=== PATIENT | female | born 1940 | race Caucasian/White ===

== ENCOUNTER 2016-09-24 08:50 | Inpatient (IN) ==
[2016-09-24 09:27] LABS: Basophils % 0.2 % (0.0-0.8); Eosinophils % 0.2 % (0.00-10.9); Hematocrit 28.8 VOL% (35.7-47.0); Hemoglobin 9.9 GM/DL (12.0-16.0); Immature Granulocytes % 0.7 %; Immature Granulocytes Absolute 0.03 #; Lymphocytes # 0.8 10*3/uL (1.4-4.0); Lymphocytes % 18.3 % (21.3-54.2); Mean Corpuscular HGB Conc 34.4 GM/DL (32-36); Mean Corpuscular Hemoglobin 30 PG (27-34); Mean Corpuscular Volume 86.7 FL (87-102); Mean Platelet Volume 9.6 FL (9.6-12.0); Monocytes # 0.6 10*3/uL (0.11-0.8); Neutrophils # 2.8 10*3/uL (1.4-7.4); Neutrophils % 65.6 % (38.7-73.9); Platelet Count 240 T/CUMM (130-400); Red Blood Count 3.32 MC/CUMM (3.8-5.5); Red Cell Distribution Width 13.2 % (9.3-17.3); White Blood Count 4.2 T/CUMM (4-12)
[2016-09-24 09:38] LABS: INR 1.2; PT Patient Result 12.6 SECS
--- NOTE | 2016-09-24 09:53 | CT Report ---
History: Altered mental status. Confusion Date: 09/24/2016 Study: CT head without contrast Comparison exam: No previous head CT available for comparison Transaxial CT sections were obtained through the head without IV contrast. This CT exam was performed using one or more the following dose reduction techniques: Automated exposure control, adjustment of the MA and/or KV according to patient size, or use of iterative reconstruction technique. The ventricles are midline in position without evidence of hydrocephalus. There is no mass or parenchymal hemorrhage. There is no gross CT evidence of acute cortical stroke. There is mild cerebral atrophy. There is some ill-defined density in the periventricular white matter without mass effect compatible with changes of small vessel disease. There is no extra-axial hematoma. The partially visualized paranasal sinuses and mastoid air cells are clear. There is mild distal carotid artery calcification. Impression: No acute intracranial process PROCEDURE INTERPRETED AT [facility] DEPARTMENT OF RADIOLOGY Final Report Signed by: Dr. Marisa Hoover
[2016-09-24 10:01] LABS: Albumin 3.2 G/DL (3.4-5.0); Bilirubin,Total 0.4 MG/DL (0.2-1.0); Calcium 8.5 MG/DL (8.5-10.1); Osmolality,Calculated 238.5 MOS/KG (273-304); Potassium 4.3 MMOL/L (3.5-5.1); Total Protein 6.5 G/DL (6.4-8.3)
[2016-09-24 10:18] LABS: Apearance,Urine CLEAR (Clear); Bilirubin,Urine Negative (Negative); Blood, Urine Negative (Negative); Glucose,Urine (UA) Negative (Negative); Ketones,Urine Negative (Negative); Mucus,Urine Occasional /LPF (Occasional); Nitrite,Urine Negative (Negative); Protein,Urine Negative; RBC,Urine <1 /HPF (0-4); Squamous Epithelial Cell,Urine Occasional /HPF (0-10); Urine Color Straw (Yellow); Urine Specific Gravity 1.009 (1.001-1.035); Urine Urobilinogen < 2.0 EU/DL (0.2-1.0); WBC,Urine <1 /HPF (0-6)
[2016-09-24] MEDS ORDERED: SODIUM CHLORIDE 0.9% 500 ML IV STA (10:21)
--- NOTE | 2016-09-24 10:37 | Emergency Department Note ---
Rebecca Coon Gwan, am scribing for, and in the presence of, Danny Fofana MD 09:37. ICt Phillip K, MD, personally performed the services described in this documentation, ascribed by Gaviota Fernandez in my presence, and it is both accurate and complete . Arrival - Arrival Chief Complaint: Altered Mental Status Stated Complaint: confusion,possible stroke ED Nursing Triage Note: Pt's son reports that pt awoke this am with confusion, does not remember anything about yesterday. Mode of Arrival: Ambulatory Source: Family, EMS, RN Notes Reviewed Time Seen by Provider: 09/24/16 09:17 - History of Present Illness HPI Narrative: Pt is a 76 y/o female, with a hx of recurring UTI, who presents to the ED for further evaluation of AMS with an onset today. Patient is a poor historian and slow to respond. She is accompanies by family members. Family stated that pt showed signs of slow reaction yesterday afternoon. Family continued to say that this morning when pt got up, she could not remember her normal routine of taking her medication or eating. This prompted family to report to ED for further evaluation. Family confirmed that pt lives with family but denies that pt has been dx of stroke, dementia or having any trouble being ambulatory. During exam, pt denied being in any pain now while in ED. Family then noted that pt was last seen in ED 09/19/2016 for impaction and received Lactulose in which caused watery BM. Family continued to say that pt took her last dose of Lactulose yesterday. No other problems/complaints reported in ED. Onset (ago): day(s) Consistency: constant Severity: moderate Allergies/Adverse Reactions: Allergies Allergy/AdvReac Type Severity Reaction Status Date / Time azithromycin [From Zithromax] Allergy Unknown/Unable Verified 09/19/16 15:03 to obtain loratadine [From Claritin] Allergy Unknown/Unable Verified 09/19/16 15:03 to obtain pseudoephedrine Allergy Unknown/Unable Verified 09/19/16 15:03 [From Claritin-D] to obtain Home Medications: Home Medications Medication Instructions Recorded Confirmed Type Aspirin EC Tab 325 mg PO DAILY 09/19/16 09/24/16 History Betamethasone Dipropionate 1 applic TOP BID 09/19/16 09/24/16 History [Betamethasone Dipropionate 0.05% Oint] Carvedilol [Coreg] 6.25 mg PO BID 09/19/16 09/24/16 History Ferrous Sulfate 325 mg PO BID 09/19/16 09/24/16 History Lactulose Liquid [Chronulac] 20 gm PO BID #10 udcup 09/19/16 09/24/16 Rx Levothyroxine Tab [Synthroid Tab] 100 mcg PO QAM 09/19/16 09/24/16 History Lisinopril 5 mg PO DAILY 09/19/16 09/24/16 History Sulfameth/Trimeth 800-160 Tab 1 tablet PO BID #14 tablet 09/19/16 09/24/16 Rx [Bactrim Ds Tab] amLODIPine [Norvasc] 2.5 mg PO DAILY 09/19/16 09/24/16 History hydroCHLOROthiazide 25 mg PO DAILY 09/19/16 09/24/16 History [Hydrochlorothiazide] Review of System - Review of System ROS unobtainable: due to mental status Medical,Surgical,& Family Hx - Medical History Cardio: History of: Hypertension Genitourinary: History of: Recurring Urinary Tract Infections - Social History Smoking Status: Never smoker Exam Vital Signs: Vital Signs Temperature 97.7 F 09/24/16 08:51 Pulse Rate 56 L 09/24/16 08:51 Respiratory Rate 18 09/24/16 08:51 Blood Pressure 192/77 09/24/16 08:51 O2 Sat by Pulse Oximetry 98 09/24/16 08:51 - General General appearance: alert, in no apparent distress - Head Head exam: Present: atraumatic, normocephalic - Eye Eye exam: Present: normal appearance, PERRL, EOMI - ENT ENT exam: Present: normal oropharynx, mucous membranes moist, TM's normal bilaterally, normal external ear exam - Neck Neck exam: Present: full ROM, trachea midline. Absent: tenderness - Chest Chest inspection: Present: symmetric chest wall rise. Absent: tenderness - Respiratory Respiratory exam: Present: normal lung sounds bilaterally. Absent: respiratory distress - Cardiovascular Cardiovascular exam: Present: regular rate, normal rhythm, normal heart sounds. Absent: murmur - Abdominal Exam Abdominal exam: Present: soft, distention (evidence of reproducible umbilical hernia) - Extremities Exam Extremities exam: Present: full ROM, other (trace edema bilateral lower extremities) - Back Exam Back exam: Present: full ROM. Absent: tenderness - Neurological Exam Neurological exam: Present: alert. Absent: motor sensory deficit - Psychiatric Psychiatric exam: Present: normal affect, normal mood - Skin Skin exam: Present: warm, dry, intact, normal color Course Course Narrative: Patient's sodium is 118. According to the family members she has been drinking a lot of water because of her urinary tract infection. This is probably why she is hyponatremic. Patient will be admitted to Dr. Boyle with fluid restriction. Results - Labs CBC & BMP: 09/24/16 09:21 09/24/16 09:21 Lab Results: I have reviewed the patients labs Labs: Laboratory Tests 09/24/16 09/24/16 09:21 09:21 WBC 4.2 RBC 3.32 L Hgb 9.9 L Hct 28.8 L Plt Count 240 Lymph % (Auto) 18.3 L [place] % (Auto) 15.0 H Lymph # (Auto) 0.8 L INR 1.2 PT Patient/Control Mix 12.6 Circ Anticoag PTT 32.0 Laboratory Tests 09/24/16 09:21 Sodium 118 L* Potassium 4.3 Chloride 85 L Carbon Dioxide 23 BUN 16 Creatinine 1.00 Calculated Osmolality 238.5 L Albumin 3.2 L Albumin/Globulin Ratio 0.9 L Laboratory Tests 09/24/16 09:21 Urine pH 6.0 Ur Specific [place] 1.009 Urine Urobilinogen < 2.0 H Urine RBC <1 Urine WBC <1 Ur Squamous Epith Cells Occasional Urine Mucus Occasional - Diagnostic Findings Procedure: CT: report reviewed by me (CT head scan is unremarkable.) Disposition Clinical Impression: Hyponatremia, Altered mental status Case discussed with: patient, patient's family Disposition: Still a Patient Condition: Guarded Additional Instructions: Admit to Dr. Boyle
--- NOTE | 2016-09-24 11:10 | EKG Report ---
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
--- NOTE | 2016-09-24 17:11 | Internal Med History&Physical ---
Assessment and Plan (1) Altered mental status Status: Acute Assessment and plan: 76-year-old female admitted to acute care * Altered mental status. Most likely related to hyponatremia. This is probably the cause of her change in mental status. Her urine cultures were negative. Will check her for impaction. * Hyponatremia. Probably combination of medications including HCTZ and drinking excessive amount of water for presumed urinary tract infection. Will keep her on a fluid restriction * Hypertension. Blood pressure is stable. Will hold her HCTZ. She did get it this morning at home * Constipation. Will check for impaction and do a KUB. * Discussed with patient's son and daughter Current Visit: Yes (2) Hypertension Status: Acute Current Visit: Yes (3) Hypothyroid Status: Acute Current Visit: Yes (4) Hyponatremia Status: Acute Current Visit: Yes (5) Constipation Status: Acute Current Visit: No (6) UTI (urinary tract infection) Status: Acute Current Visit: No History of Present Illness Chief complaint: Change in mental state History of present illness: Ms. Bingham is a 76 year old female with history of hypertension, anemia, hypothyroidism who presented to the emergency room with change in mental status. According to the patient's family members she has been confused since early this morning. She has been weak and unable to get up. She did not remember anything about yesterday. Patient was in the emergency room last week with constipation and was found to have an infection. She was started on lactulose and was told to drink plenty of fluids. In the emergency room patient was evaluated with CT brain and was found to have low sodium at 118. Apparently patient had been drinking a lot of fluids because of urinary tract infection. She was also started on Bactrim and lactulose in the emergency room last week. Her urine cultures from last week were negative. Patient denies any chest pain or shortness of breath. She denies any nausea vomiting or diarrhea. She denies any fever or chills. She is still confused and does not know what month or year at this but she recognized me. She knew my name and knew that she was at the hospital. Patient lives at home with her children. She does not smoke or drink alcohol Home Medications Medication Instructions Recorded Confirmed Type Aspirin EC Tab 325 mg PO DAILY 09/19/16 09/24/16 History Betamethasone Dipropionate 1 applic TOP BID 09/19/16 09/24/16 History [Betamethasone Dipropionate 0.05% Oint] Carvedilol [Coreg] 6.25 mg PO BID 09/19/16 09/24/16 History Ferrous Sulfate 325 mg PO BID 09/19/16 09/24/16 History Lactulose Liquid [Chronulac] 20 gm PO BID #10 udcup 09/19/16 09/24/16 Rx Levothyroxine Tab [Synthroid Tab] 100 mcg PO QAM 09/19/16 09/24/16 History Lisinopril 5 mg PO DAILY 09/19/16 09/24/16 History Sulfameth/Trimeth 800-160 Tab 1 tablet PO BID #14 tablet 09/19/16 09/24/16 Rx [Bactrim Ds Tab] amLODIPine [Norvasc] 2.5 mg PO DAILY 09/19/16 09/24/16 History hydroCHLOROthiazide 25 mg PO DAILY 09/19/16 09/24/16 History [Hydrochlorothiazide] Allergies Allergy/AdvReac Type Severity Reaction Status Date / Time azithromycin [From Zithromax] Allergy Unknown/Unable Verified 09/19/16 15:03 to obtain loratadine [From Claritin] Allergy Unknown/Unable Verified 09/19/16 15:03 to obtain pseudoephedrine Allergy Unknown/Unable Verified 09/19/16 15:03 [From Claritin-D] to obtain Medical,Surgical,& Family Hx - Medical History Cardio: History of: Hypertension Endocrine: History of: Thyroid Disorder Genitourinary: History of: Bladder Problem (Overactive bladder), Recurring Urinary Tract Infections - Surgical History Surgical History: noncontributory - Family History Family History: Reports;: Family Hypertension, Family Stroke - Social History Smoking Status: Never smoker Frequency of Alcohol Use: None Type of Drug Use: None Marital Status: Single Lives With:: Children Functional capacity: independent ambulation ROS unobtainable: due to mental status Exam - Constitutional Exam: Examination: GENERAL: NAD. HEENT: PERRLA. EOMI. Mucous membranes are moist. NECK: Neck is supple. No JVD. No carotid bruit. No thyromegaly. CVS: Regular rate and rhythm. S1 and S2 are normal. RESPIRATORY: Lungs are clear. No rales or rhonchi. ABDOMEN: Soft and nontender. Bowel sounds are present. No hepatosplenomegaly. EXT: No edema. Peripheral pulses are present. ENERGY ENGINEER: Patient is awake, alert but slightly confused. Cranial nerves II through XII are grossly intact. Motor strength is 5 over 5 both upper and lower extremities. SKIN: Warm and dry. MSK: No obvious deformity. Results - Labs CBC & BMP: 09/24/16 09:21 09/24/16 09:21 Lab Results: I have reviewed the past 24 hour labs
[2016-09-24] MEDS: CARVEDILOL 6.25 MG TABLET PO SCH (17:19)
[2016-09-24] MEDS: LACTULOSE 20 GM/30 ML UDCUP PO SCH (20:46)
[2016-09-24] MEDS: SULFAMETHOX/TRIMETHOPRIM 800-160 MG TABLET PO SCH (20:46)
[2016-09-24] MEDS: FERROUS SULFATE 325 MG TABLET PO SCH (20:46)
[2016-09-24] MEDS: BETAMETHASONE DIPR 0.05% CREAM 15 GM TUBE TOP SCH (22:34)
[2016-09-25] MEDS: LEVOTHYROXINE 100 MCG TABLET PO SCH (06:41)
[2016-09-25 07:32] LABS: Calcium 8.2 MG/DL (8.5-10.1); Free T4 (Free Thyroxine) 1.3 NG/DL (0.76-1.46); Osmolality,Calculated 242.2 MOS/KG (273-304); Potassium 3.8 MMOL/L (3.5-5.1); Thyroid Stimulating Hormone 0.827 uIU/ml (0.358-3.74)
[2016-09-25] MEDS: amLODIPine 2.5 MG TABLET PO SCH ×3 (09:17→20:34)
[2016-09-25] MEDS: LACTULOSE 20 GM/30 ML UDCUP PO SCH ×3 (09:17→20:34)
[2016-09-25] MEDS: FERROUS SULFATE 325 MG TABLET PO SCH ×2 (09:17→20:33)
[2016-09-25] MEDS: ASPIRIN EC 325 MG TABLET PO SCH ×3 (09:18→20:33)
[2016-09-25] MEDS: SULFAMETHOX/TRIMETHOPRIM 800-160 MG TABLET PO SCH (09:18)
[2016-09-25] MEDS: LISINOPRIL 5 MG TABLET PO SCH ×3 (09:18→20:34)
[2016-09-25] MEDS: CARVEDILOL 6.25 MG TABLET PO SCH ×2 (09:18→17:08)
--- NOTE | 2016-09-25 09:58 | Internal Med Progress Note ---
Assessment and Plan (1) Altered mental status Status: Acute Assessment and plan: 76-year-old female admitted to acute care * Altered mental status. Her sodium is still low. She is still confused but better than the * Hyponatremia. Hopefully sodium will improve with fluid restriction. It is better than yesterday * Hypertension. Blood pressure is stable. * Constipation. KUB pending. She was negative for impaction * Discussed with patient's son and daughter Current Visit: Yes (2) Hypertension Status: Acute Current Visit: Yes (3) Hypothyroid Status: Acute Current Visit: Yes (4) Hyponatremia Status: Acute Current Visit: Yes (5) Constipation Status: Acute Current Visit: No (6) UTI (urinary tract infection) Status: Acute Current Visit: No Internal Medicine - PN: Subj Interval history: Patient is feeling okay. She is quite confused. No chest pain or shortness of breath. No nausea or vomiting Exam (Progress Note) - Constitutional Vitals: Period Temp Pulse Resp BP Sys/Haro Pulse Ox Last 24 Hr 97.4 F-98.6 F 54-61 16-20 124-167/52-87 98 Exam: Examination: GENERAL: NAD. NECK: Neck is supple. CVS: Regular rate and rhythm. S1 and S2 are normal. RESPIRATORY: Lungs are clear ABDOMEN: Soft and nontender. EXT: No edema. Peripheral pulses are present. HIGH SCALER: Patient is awake, alert but slightly confused. SKIN: Warm and dry. MSK: No obvious deformity. Results - Labs CBC & BMP: 09/24/16 09:21 09/25/16 06:31 Lab Results: I have reviewed the past 24 hour labs
[2016-09-25] MEDS: BETAMETHASONE DIPR 0.05% CREAM 15 GM TUBE TOP SCH ×2 (10:29→20:34)
--- NOTE | 2016-09-25 12:35 | XRay Report ---
History: Constipation. UTI Date: 09/25/2016 Study: KUB Comparison exam: Abdominal x-ray September 19, 2016 The bowel gas pattern is nonobstructive without gross mass lesion. There is a mild to moderate amount of residual stool in the colon, including stool in the rectal vault. No gross radiopaque calculi are seen. Phleboliths overlie the pelvis. There is some degenerative disc disease in the spine. Osteopenia. Impression: No definite acute abdominal process PROCEDURE INTERPRETED AT [facility] DEPARTMENT OF RADIOLOGY Final Report Signed by: Dr. Marisa Hoover
[2016-09-26] MEDS: LEVOTHYROXINE 100 MCG TABLET PO SCH (06:22)
[2016-09-26 06:57] LABS: Osmolality,Calculated 254.2 MOS/KG (273-304); Potassium 3.9 MMOL/L (3.5-5.1)
--- NOTE | 2016-09-26 08:35 | Physician Query Form ---
CLICK EDIT DOCUMENT TO SELECT QUERY ANSWER --> OK --> SIGN Deanna Chung RN, CCDS Certified Clinical Hot Wort Settler W) [phone] (f) [phone] [email or web address] PROVIDERS: Make your selection(s) from the choices in EACH section by typing an "x" and enter comments in the comment section. Please use your independent medical judgment in providing your response. This request does not imply that any particular answer is desired or expected. CLINICAL INDICATORS: (Providers should not edit this section) "Altered mental status. Most likely related to hyponatremia. This is probably the cause of her change in mental status." ACUITY: (x ) Acute ( ) Acute on Chronic ( ) Chronic ( ) Clinically unable to determine NATURE: ( ) Delirium due to general medical condition ( ) Dementia ( ) Encephalopathy ( ) Metabolic Encephalopathy ( ) Unconscious (x ) Other, please specify: Hyponatremia ( ) Clinically unable to determine Please indicate the underlying cause of the altered mental status (CHECK ALL THAT APPLY): ( ) Baseline dementia ( ) Alzheimer's disease ( ) Parkinson's disease ( ) Lewy body dementia ( ) Acute stroke ( ) Late effect of stroke ( ) Reactive (from emotional stress, psychological trauma) ( ) Due to narcotics/other drugs ( ) Post procedural delirium ( ) Transient ischemic attack ( ) Generalized cerebral edema ( ) Normal pressure hydrocephalus ( ) Psychiatric illness (x) Other, please specify: Hyponatremia ( ) Clinically unable to determine Please indicate if there is an infection, sepsis, dehydration or specific organ failure that is causing the dementia. Be specific with clarifying the relationship between that process and the mental status change. COMMENTS: Use of terms such as suspected, likely, or probable (associated with a specific diagnosis that is being evaluated, monitored, or treated as if it exists) are acceptable and can be restated in the discharge summary if not ruled out. MTDD
--- NOTE | 2016-09-26 08:48 | Internal Med Progress Note ---
Assessment and Plan (1) Altered mental status Status: Acute Assessment and plan: 76-year-old female admitted to acute care * Altered mental status. Improved * Hyponatremia. Sodium is up to 127 * Hypertension. Blood pressure is stable. * Constipation. KUB pending. She was negative for impaction * Discussed with patient's daughter Current Visit: Yes (2) Hypertension Status: Acute Current Visit: Yes (3) Hypothyroid Status: Acute Current Visit: Yes (4) Hyponatremia Status: Acute Current Visit: Yes (5) Constipation Status: Acute Current Visit: No (6) UTI (urinary tract infection) Status: Acute Current Visit: No Internal Medicine - PN: Subj Interval history: Patient is feeling okay. Her confusion is much better. She denies any chest pain or shortness of breath Exam (Progress Note) - Constitutional Vitals: Period Temp Pulse Resp BP Sys/Haro Pulse Ox Last 24 Hr 97.5 F-99 F 54-62 12-20 99-140/47-84 96-100 Exam: Examination: GENERAL: NAD. NECK: Neck is supple. CVS: Regular rate and rhythm. S1 and S2 are normal. RESPIRATORY: Lungs are clear ABDOMEN: Soft and nontender. EXT: No edema. Peripheral pulses are present. CHIROPRACTIC PRACTICE MANAGER: Patient is awake, alert but slightly confused. SKIN: Warm and dry. Results - Labs CBC & BMP: 09/24/16 09:21 09/26/16 05:55 Lab Results: I have reviewed the past 24 hour labs
[2016-09-26] MEDS: LACTULOSE 20 GM/30 ML UDCUP PO SCH ×2 (09:45→20:50)
[2016-09-26] MEDS: CARVEDILOL 6.25 MG TABLET PO SCH ×2 (09:46→16:51)
[2016-09-26] MEDS: FERROUS SULFATE 325 MG TABLET PO SCH ×2 (09:46→20:49)
[2016-09-26] MEDS: BETAMETHASONE DIPR 0.05% CREAM 15 GM TUBE TOP SCH ×2 (09:48→20:50)
[2016-09-26] MEDS: ASPIRIN EC 325 MG TABLET PO SCH (20:49)
[2016-09-26] MEDS: amLODIPine 2.5 MG TABLET PO SCH (20:49)
[2016-09-26] MEDS: LISINOPRIL 5 MG TABLET PO SCH (20:50)
[2016-09-27] MEDS: LEVOTHYROXINE 100 MCG TABLET PO SCH (07:52)
[2016-09-27 08:58] LABS: Calcium 8.7 MG/DL (8.5-10.1); Osmolality,Calculated 266.7 MOS/KG (273-304); Potassium 3.7 MMOL/L (3.5-5.1)
[2016-09-27 09:03] VITALS: BP 142/62
--- NOTE | 2016-09-27 09:49 | Discharge Summary ---
Hospital Course - Hospital Course Hospital Course: 76-year-old female with history of hypertension, anemia, hypothyroidism was admitted through the emergency room with change in mental status. It was felt that this was secondary to hyponatremia. She was started on fluid restriction and her HCTZ was stopped. She was given a regular salt diet. Her sodium has improved over last 4 days from 118-131 today. She is better and is ready to be discharged home. Her daughter and son will be staying with her. There is some question of possible dementia. Will see her back in office next week with a BMP. Will hold her HCTZ and lactulose for now Diagnosis - Discharge Diagnosis (1) Altered mental status Status: Acute (2) Hypertension Status: Acute (3) Hypothyroid Status: Acute (4) Hyponatremia Status: Acute (5) Constipation Status: Inactive (6) UTI (urinary tract infection) Status: Inactive Discharge Plan - Discharge Data Disposition: Disch To Home/Self Care Condition at Discharge: Stable Discharge Diet: advance to your usual diet Activity: resume usual activities as tolerated - Discharge Medications Continue Betamethasone Dipropionate [Betamethasone Dipropionate 0.05% Oint] 1 applic TOP BID amLODIPine [Norvasc] 2.5 mg PO DAILY Ferrous Sulfate 325 mg PO BID Lisinopril 5 mg PO DAILY Levothyroxine Tab [Synthroid Tab] 100 mcg PO QAM Carvedilol [Coreg] 6.25 mg PO BID Aspirin EC Tab 325 mg PO DAILY Discontinued hydroCHLOROthiazide [Hydrochlorothiazide] 25 mg PO DAILY Sulfameth/Trimeth 800-160 Tab [Bactrim Ds Tab] 1 tablet PO BID #14 tablet Lactulose Liquid [Chronulac] 20 gm PO BID #10 udcup - Follow Up or Referral - Forms/Instructions Additional Discharge Instructions: Appointment 1 week with CBC BMP and Mini- Mental status examination in office Exam - Constitutional Vitals: Period Temp Pulse Resp BP Sys/Haro Pulse Ox Last 24 Hr 97.2 F-99.2 F 58-76 18-20 111-142/56-65 97-99 Exam: Examination: GENERAL: NAD. NECK: Neck is supple. CVS: Regular rate and rhythm. S1 and S2 are normal. RESPIRATORY: Lungs are clear ABDOMEN: Soft and nontender. EXT: No edema. Peripheral pulses are present. 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 Discharge Results Labs on day of discharge: Labs from last 24 hours 09/27/16 08:20 Sodium 131 L Potassium 3.7 Chloride 100 Carbon Dioxide 25 Anion Gap 9.7 BUN 25 H Creatinine 1.20 H GFR Calculation 47 BUN/Creatinine Ratio 20.00 Glucose 115 H Calculated Osmolality 266.7 L Calcium 8.7 DS: Provider Date of admission: 09/25/16 09:45 Primary care physician: . No PCP Attending physician on admission: Antonino Boyle MD Consults: 09/26/16 08:35 PT [Consult to Physical Therapy] [CONS] Routine Reason for Physical Therapy: Evaluate and Treat Discharging clinician: Antonino Boyle MD
[2016-09-27] MEDS: FERROUS SULFATE 325 MG TABLET PO SCH (09:58)
[2016-09-27] MEDS: LACTULOSE 20 GM/30 ML UDCUP PO SCH (09:58)
[2016-09-27] MEDS: CARVEDILOL 6.25 MG TABLET PO SCH (09:58)
[2016-09-27] MEDS: BETAMETHASONE DIPR 0.05% CREAM 15 GM TUBE TOP SCH (09:58)
== END 2016-09-27 10:30 | disposition home or self-care (01) | DRG 641 ==
LOC: N.ED 08:50 → N.EDINP 08:50 → N.2E 11:08
PROVIDERS: ADMIT Internal Medicine; ATTEND Internal Medicine